=== PATIENT | female | born 1970 | race Caucasian/White ===

== ENCOUNTER 2017-10-19 17:00 | Emergency (ER) | payer MEDICAID ==
[~2017-10-19] VITALS: Ht 172.7 cm; Wt 76.0 kg
[~2017-10-19 17:00] MED LIST: CALC1TAB PO; HYDR-3972 PO; LACT1CAP26 PO; POLY17PO2 PO; PRED5DRO7 LEFTEYE
[2017-10-19] MEDS ORDERED: SULF1TAB49 PO (18:42)
[2017-10-19 18:50] VITALS: BP 133/87
== END 2017-10-19 18:52 | disposition home or self-care (01) ==
LOC: ER 17:01
DX: L03.115 Cellulitis of right lower limb (principal); K21.9 Gastro-esophageal reflux disease without esophagitis; M19.90 Unspecified osteoarthritis, unspecified site; F12.90 Cannabis use, unspecified, uncomplicated; Z90.49 Acquired absence of other specified parts of digestive tract; Z56.0 Unemployment, unspecified
CPT/HCPCS: 99283

== ENCOUNTER 2019-04-04 15:54 | Emergency (ER) | payer MEDICAID ==
[~2019-04-04] VITALS: Ht 172.7 cm; Wt 81.8 kg
[~2019-04-04 15:54] MED LIST changes: +CLIN-90 PO; -POLY17PO2 PO; +POLY17PO36 PO
[2019-04-04 15:57] VITALS: BP 122/68
[2019-04-04] MEDS ORDERED: AZIT500T PO (17:00)
== END 2019-04-04 17:33 | disposition home or self-care (01) ==
LOC: ER 15:55
DX: J18.9 Pneumonia, unspecified organism (principal); K21.9 Gastro-esophageal reflux disease without esophagitis; M19.90 Unspecified osteoarthritis, unspecified site; F12.90 Cannabis use, unspecified, uncomplicated; F17.200 Nicotine dependence, unspecified, uncomplicated; Z90.49 Acquired absence of other specified parts of digestive tract; Z56.0 Unemployment, unspecified; Z88.0 Allergy status to penicillin; Z79.899 Other long term (current) drug therapy
CPT/HCPCS: 71045; 99283

== ENCOUNTER 2020-03-22 22:09 | Emergency (ER) | payer MEDICAID ==
[~2020-03-22] VITALS: Ht 172.7 cm; Wt 78.2 kg
[~2020-03-22 22:09] MED LIST changes: -CLIN-90 PO; +CLIN-97 PO
[2020-03-22 22:18] VITALS: BP 153/57
== END 2020-03-22 22:34 | disposition home or self-care (01) ==
LOC: ER 22:10
DX: M25.531 Pain in right wrist (principal); K21.9 Gastro-esophageal reflux disease without esophagitis; M19.90 Unspecified osteoarthritis, unspecified site; F12.90 Cannabis use, unspecified, uncomplicated; Z72.89 Other problems related to lifestyle; Z56.0 Unemployment, unspecified; Z90.49 Acquired absence of other specified parts of digestive tract; Z88.0 Allergy status to penicillin; Z79.899 Other long term (current) drug therapy
CPT/HCPCS: 99282

== ENCOUNTER 2020-04-05 18:42 | Emergency (ER) | payer MEDICAID ==
[~2020-04-05] VITALS: Ht 172.7 cm; Wt 78.2 kg
[2020-04-05] MEDS ORDERED: IBUP-1985 PO (19:08)
[2020-04-05] MEDS ORDERED: CLIN150C99 PO (19:08)
[2020-04-05] MEDS ORDERED: HYDR-3965 PO (19:08)
[2020-04-05] MEDS ORDERED: LORazepam 2 mg/ml vial ONE (19:52)
[2020-04-05] MEDS ORDERED: LORazepam 2 mg/ml vial IM ONE (19:55)
--- NOTE | 2020-04-05 19:55 | NUR ---
walking past pts room and the daughter screams "she's having a seziure" - I immediately called for a physician and MD Eddy arrive approx 10 seconds later. The daughter starts screaming at how we are not doing our job and no one has been in the room to see her and we have done nothing for her seizure. pt was not witnessed to have seizure activity by EMS or staff while here in ER - She was indeed having a seizure when I entered the room with incontinence of urine and tonic clonic activity. The daughter continued to yell at me as I was trying to explain the process to her. She told me to "shup up" and that I was insulting her by trying to explain things to her. I called for security and then administered 2mg IM ativan per MD eddy order. The patient was asked to wait outside the room so we could treat her mother. She complied with my request but when the patient awoke and was postictal she wasn't understanding why we were having the pt remain in the supine position. She took out her cell phone and started to video record. I advised her that cell phone recording was not allowed and she refused to put the phone away. Security was still in the room and they asked her as well. She was then escorted off the property.
[2020-04-05] MEDS ORDERED: LORazepam 2 mg/ml vial IV ONE (20:05)
--- NOTE | 2020-04-05 20:10 | NUR ---
Pt is no longer seizing. A/O X 3. Pt able to answer questions verbally, but is actively trying to pull out IV's. Pt is being restrained by staff until Ativan takes effect. Verbal order for soft safety restraints from PATEL Wilkins. Pt restrained B/L UE CSM intact
--- NOTE | 2020-04-05 21:13 | NUR ---
Pts Jim's phone number [phone]
[2020-04-05 21:33] LABS: BASOPHILS # (AUTO) 0.1 X10'3 (0-0.2); BASOPHILS % (AUTO) 0.3 % (0-1); EOSINOPHILS % (AUTO) 0 % (0-6); HEMATOCRIT 47.6 % (35.0-45.0); HEMOGLOBIN 15.8 g/dl (12.0-16.0); LYMPHOCYTES # (AUTO) 0.8 X10'3 (1.1-4.8); LYMPHOCYTES % (AUTO) 3.8 % (21-51); MEAN CORPUSCULAR HEMOGLOBIN 29.8 PG (27.0-31.0); MEAN CORPUSCULAR HGB CONC 33.3 g/dL (33.0-36.5); MEAN CORPUSCULAR VOLUME 89.4 FL (78-98); MONOCYTES # (AUTO) 0.6 X10'3 (0-0.9); MONOCYTES % (AUTO) 2.9 % (2-12); NEUTROPHILS # (AUTO) 18.6 X10'3 (1.8-7.7); PLATELET COUNT 402 X10'3 (140-440); RED BLOOD COUNT 5.32 X10'6 (4.20-5.60); RED CELL DISTRIBUTION WIDTH 13.2 % (11.5-14.5)
[2020-04-05 21:39] LABS: ALANINE AMINOTRANSFERASE 26 U/L (12-78); ALBUMIN 3.6 G/DL (3.4-5.0); ALBUMIN/GLOBULIN RATIO 0.8 (1.1-1.5); ALKALINE PHOSPHATASE 95 IU/L (46-116); ANION GAP 14 (8-16); ASPARTATE AMINO TRANSFERASE 21 U/L (10-37); BILIRUBIN,TOTAL 0.4 MG/DL (0.1-1.0); BLOOD UREA NITROGEN 16 MG/DL (7-18); BUN/CREATININE RATIO 19.8 (6.6-38.0); CALCIUM 9.3 MG/DL (8.5-10.1); CHLORIDE 95 MMOL/L (99-107); CREATININE 0.81 MG/DL (0.40-0.90); ETHANOL < 0.010 GM/DL (0.0-0.010); GLUCOSE 174 MG/DL (70-104); MAGNESIUM 1.6 MG/DL (1.5-2.4); SODIUM 132 MMOL/L (135-145); TOTAL CARBON DIOXIDE 23.2 MMOL/L (24-32); TOTAL PROTEIN 7.9 G/DL (6.4-8.2); eGFR 75 ML/MIN
[2020-04-05 21:43] LABS: CLARITY,URINE CLOUDY (Clear); COLOR,URINE YELLOW (Yellow); GLUCOSE, URINE NEGATIVE (Neg); KETONES,URINE NEGATIVE (Neg); LEUKOCYTE ESTERASE ,URINE NEGATIVE (Neg); NITRITES, URINE NEGATIVE (Neg); OCCULT BLOOD,URINE SMALL (Neg); PROTEIN,URINE 100 mg/dl (Neg); UROBILINOGEN,URINE 0.2 E.U/dL (0.2-1.0)
[2020-04-05 21:45] LABS: UA COLLECTION TYPE STRAIGHT CATH
[2020-04-05 21:50] LABS: HYALINE CASTS 0-3 /LPF (NEGATIVE)
[2020-04-05 21:52] LABS: AMORPHOUS URATES 3+; BACTERIA,URINE NONE SEEN /HPF (Neg); MUCUS STRANDS FEW /LPF (Neg); RBC,URINE 0-2 /HPF (0-2); SQUAMOUS EPITHELIAL CELL,UR FEW /LPF (FEW); TRANSITIONAL EPI CELLS,URINE FEW /HPF; WBC,URINE 0-4 /HPF (0-4)
[2020-04-05] MEDS ORDERED: normal saline 1000ML IV soln IVB ONE ×2 (21:55)
--- NOTE | 2020-04-05 21:55 | NUR ---
Pt moved from ED 11 to ED 8 for closer observation. Pt is resting comfortably. Pt has low tolerance for environmental stimulation and will become agitated during care. Restraints removed while resting.
[2020-04-05 21:58] LABS: URINE AMPHETAMINE SCREEN POSITIVE (Neg); URINE BARBITUATE SCREEN NEGATIVE (Neg); URINE BENZODIAZEPINES SCREEN POSITIVE (Neg); URINE CANNABINOID SCREEN POSITIVE (Neg); URINE COCAINE SCREEN NEGATIVE (Neg); URINE METHADONE SCREEN NEGATIVE (Neg); URINE OPIATE SCREEN POSITIVE (Neg); URINE PHENCYCLIDINE SCREEN NEGATIVE (Neg)
[2020-04-05 22:35] LABS: PARTIAL THROMBOPLASTIN TIME 25 SECONDS (22-32)
--- NOTE | 2020-04-06 00:23 | NUR ---
Pt up to bedside commode. Pt followed instructions, but was impulsive and unsteady on her feet. Pt A/O X 4. She states she feels dizzy.
[2020-04-06 01:00] VITALS: BP 175/76
== END 2020-04-06 02:50 | disposition home or self-care (01) ==
LOC: ER 18:42
DX: G40.909 Epilepsy, unspecified, not intractable, without status epilepticus (principal); F19.10 Other psychoactive substance abuse, uncomplicated; F12.90 Cannabis use, unspecified, uncomplicated; K21.9 Gastro-esophageal reflux disease without esophagitis; M19.90 Unspecified osteoarthritis, unspecified site; Z56.0 Unemployment, unspecified; Z72.89 Other problems related to lifestyle; Z90.49 Acquired absence of other specified parts of digestive tract; Z88.0 Allergy status to penicillin; Z79.2 Long term (current) use of antibiotics; Z79.899 Other long term (current) drug therapy
CPT/HCPCS: 36415; 70450; 80053; 80305; 80320; 81001; 82948; 83605; 83735; 84145; 85025; 85610; 85730; 93005; 96361; 96372; 96374; 99285; J2060; J7030

== ENCOUNTER 2020-07-25 09:41 | Emergency (ER) | payer MEDICAID ==
[~2020-07-25] VITALS: Ht 172.7 cm; Wt 78.6 kg
[~2020-07-25 09:41] MED LIST changes: -CLIN-97 PO; +CLIN150C99 PO; +HYDR-3965 PO; -HYDR-3972 PO; +IBUP-1985 PO; -POLY17PO36 PO; +POLY17PO59 PO
[2020-07-25] MEDS ORDERED: HYDROcodone/acetaminophen 10/325mg tab PO ONE (11:05)
[2020-07-25] MEDS ORDERED: HYDR-3972 PO (12:16)
[2020-07-25 12:45] VITALS: BP 108/83
== END 2020-07-25 12:47 | disposition home or self-care (01) ==
LOC: ER 09:41
DX: S22.32XA Fracture of one rib, left side, initial encounter for closed fracture (principal); K21.9 Gastro-esophageal reflux disease without esophagitis; F12.10 Cannabis abuse, uncomplicated; Z56.0 Unemployment, unspecified; Z88.0 Allergy status to penicillin; Z79.899 Other long term (current) drug therapy; X50.9XXA Other and unspecified overexertion or strenuous movements or postures, initial encounter; Y93.89 Activity, other specified; Y92.89 Other specified places as the place of occurrence of the external cause; Y99.8 Other external cause status
CPT/HCPCS: 71101; 99283

== ENCOUNTER 2024-10-11 10:14 | Emergency (ER) | payer MEDICAID ==
[~2024-10-11] VITALS: Ht 172.7 cm; Wt 78.6 kg
[~2024-10-11 10:14] MED LIST changes: -IBUP-1985 PO; +IBUP600T52 PO
[2024-10-11 10:23] VITALS: TEMP 97.9
--- NOTE | 2024-10-11 10:43 | Physician Documentation ---
History of Present Illness Chief Complaint: Abdominal Pain w/vomiting Stated Complaint: BLOOD IN STOOL Primary Medical Doctor: MARS CUNHA [facility] This is a 54-year-old female who presents with four days of abdominal pain and vomiting, patient reports that she took Dulcolax yesterday and develop diarrhea and reports blood in her stool today. She tells me that initially her symptoms started with acid reflux, nausea and vomiting. She then took a docusate, and started having diarrhea yesterday. She states that the last several bowel movements were just blood. She reports now having pain in her left lower quadrant. Denies any dizziness or syncope. She does feel like she is having subjective fevers. No right-sided abdominal pain. She does have a history of hemorrhoids once in the past but no recent GI bleed. No bleeding from elsewhere. Medication Reconciliation Allergies: Coded Allergies: Penicillins (Unverified Allergy, Severe, SHORTNESS OF BREATH, ANAPHYLAXIS, 10/11/24) Scheduled Calcium Carbonate/Vitamin D3 (Caltrate-600 With Vit D Tab), 2 TAB PO DAILY, (Reported) Ciprofloxacin HCl (Ciprofloxacin HCl), 1 TAB PO Q12H Clindamycin HCl (Clindamycin HCl), 1 CAP PO Q6H, (Reported) Lactobacillus Rhamnosus (Culturelle), 10,000 MMU PO BIDWM Metronidazole* (Flagyl*), 1 TAB PO Q8H Prednisolone Acetate (Prednisolone Acetate), 1 DROP LEFTEYE QID, (Reported) Scheduled PRN Hydrocodone Bit/Acetaminophen 5/325 MG ([place] 5/325 MG), 1 TAB PO Q6H PRN for pain, (Reported) Ibuprofen (Ibuprofen), 1 TAB PO Q6H PRN for pain, (Reported) ONDANSETRON ODT 4mg tablet (Ondansetron Odt), 1 TAB PO Q6H PRN PRN for nausea/vomiting Polyethylene Glycol 3350 (Polyethylene Glycol 3350), 17 GM PO BID PRN for constipation Past Medical History Past Medical History: GERD, Arthritis Past Surgical History: appendectomy Other Past Family History: none Alcohol Use: Occasionally Drug Use: marijuana Lives with: Other Lives In: Home Occupation: unemployed Review of Systems ROS As stated above in the HPI, otherwise all systems are reviewed and negative. Gastrointestinal: Reports: abdominal pain, nausea, vomiting, diarrhea, rectal bleeding Physical Exam Vital Signs: Temperature: 97.9, Source: Oral, Heart Rate: 109, Respiratory Ra te: 18, BP: 150/77, Pulse Oximetry: 96, Weight: 78.600 Oxygen Flow Rate: 0 Physical Exam General: This is a uncomfortable appearing middle-aged woman, not in distress HEENT: Atraumatic, oropharynx appears dry with cracked lips Heart: Mild tachycardic, appears regular Lungs: normal work of breathing, normal oxygen saturation on room air Abdomen: Soft, nondistended, focal tenderness to palpation in the left lower quadrant, also mild discomfort on palpation in the epigastric region, no rebound or guarding Neuro: Alert and oriented, no focal deficits Psychiatric: Appears tired and uncomfortable, but is cooperative with exam Progress Results/Orders Results/Orders Orders - CHARLA BROWN Urinalysis, Cult If Indicated (10/11/24 10:29) Hcg, Ur Ql (10/11/24 10:29) Cbc/Diff (10/11/24 10:29) BMP (10/11/24 10:29) Lipase (10/11/24 10:29) CMP (10/11/24 10:29) Vital Signs 10/11/24 10:23 Temp 97.9 Pulse 109 Resp 18 B/P (MAP) 150/77 Pulse Ox 96 O2 Flow Rate 0 EKG/XRAY/CT/US/VASC/MRI CT : Impression I personally interpreted the CT scan, and this shows inflammation of the colon, possibly diverticulitis Medical Decision Making Findings MSE performed in triage and patient returned to ED lobby by nursing staff to await available ED room Additional Comments Differential includes viral syndrome, food poisoning, GI bleed, colitis, diverticulitis, UTI, dehydration, blood loss anemia Assessment The patient presents with left-sided abdominal pain with the associated diarrhea and possible blood in the stool. She is otherwise nontoxic appearing and did not have a surgical abdomen. She does have a leukocytosis, and her CT scan shows findings consistent with diverticulitis or colitis. He had no further diarrhea or bleeding here in the emergency department. We are unable to obtain a stool sample. She will be discharged with antibiotics for presumed colitis, and was given Zofran for nausea. She will be discharged with home care instructions and return precautions. Departure Time of Disposition: 15:12 Disposition: 01 HOME / SELF CARE / HOMELESS Impression: Primary Impression: Colitis Additional Impressions: Diarrhea Left lower quadrant pain Condition: Improved Discharge Instructions: Colitis Referrals: NO PRIMARY CARE PROVIDER (PCP) Prescriptions ONDANSETRON ODT 4mg tablet (ONDANSETRON ODT) 4 Mg Tab.rapdis 1 TAB PO Q6H PRN PRN for nausea/vomiting for 4 Days, #16 TAB 0 Refills Prov: ERIN BUENO MD 10/11/24 Metronidazole* (Flagyl*) 500 Mg Tablet 1 TAB PO Q8H for 7 Days, #21 TAB Prov: ERIN BUENO MD 10/11/24 Ciprofloxacin HCl (Ciprofloxacin HCl) 500 Mg Tab 1 TAB PO Q12H for 7 Days, #14 TAB Prov: ERIN BUENO MD 10/11/24 Education Educated: Patient Educated regarding: diagnosis, treatment, need for follow up Signature Scribe Signature: juany Attestation: CHARLA Vargas Oct 11, 2024 10:43 ERIN BUENO MD Oct 11, 2024 12:57
[2024-10-11 11:09] LABS: MEAN PLATELET VOLUME 7.1 FL (7.4-10.4); RED CELL DISTRIBUTION WIDTH 13.2 % (11.5-14.5)
[2024-10-11 11:44] LABS: CREATININE 1.19 MG/DL (0.40-0.90); TOTAL CARBON DIOXIDE 27.6 MMOL/L (24-32); eCRCL 53 ML/MIN; eGFR 47 ML/MIN
[2024-10-11 12:58] LABS: URINE HCG NEGATIVE (NEG)
[2024-10-11 12:59] LABS: LEUKOCYTE ESTERASE ,URINE TRACE (Neg); NITRITES, URINE NEGATIVE (Neg); OCCULT BLOOD,URINE NEGATIVE (Neg)
[2024-10-11 13:01] LABS: UA COLLECTION TYPE URINAL
[2024-10-11 13:09] LABS: HYALINE CASTS >30 /LPF (NEGATIVE)
[2024-10-11 13:11] LABS: MUCUS STRANDS FEW /LPF (Neg); RENAL CELLS, URINE FEW /HPF; SQUAMOUS EPITHELIAL CELL,UR MODERATE /LPF (FEW)
[2024-10-11] MEDS: ondansetron/PF 4mg/2ml inj IV ONE (13:21)
[2024-10-11] MEDS: normal saline 1000ML IV soln IVB ONE (13:21)
[2024-10-11] MEDS: morphine 4 MG/ML inj SYRINge IV ONE (13:21)
[2024-10-11] MEDS ORDERED: iohexol 300mg/ml 100ml inj. ONE (13:42)
--- NOTE | 2024-10-11 14:29 | RADIOLOGY REPORT ---
EXAM: CT CT ABDOMEN PELVIS W/ IV CONTRAST HISTORY: Left lower quadrant pain, vomiting and diarrhea COMPARISON: None TECHNIQUE: Helical CT images of the abdomen and pelvis were performed with 100 mL omnipaque 300 IV c ontrast. Sagittal and coronal reformatted images were obtained. This CT exam was performed using 1 or more of the following dose reduction techniques: Automated exposure control, adjustment of the mA an d/or kv according to patient size, or the use of iterative reconstruction techniques. Radiation Dose Information: CT Dose: CTDI volume is 20.68 mGy. Dose-length product is 1025.65 mGy*cm FINDINGS: CT abdomen: The lung bases are clear. The heart is not enlarged. The liver, spleen, gallbladder, panc reas, kidneys, and adrenal glands are unremarkable. No abdominal aortic aneurysm or dissection. The l eft renal vein is circumaortic. CT pelvis: No abnormal bowel dilatation, free air, or free fluid. There are diverticula in the descen ding colon and sigmoid colon. There is wall thickening of the descending colon with mild adjacent fat stranding. The appendix is surgically absent. The urinary bladder is unremarkable. There is a danielle nichelle section scar. There is advanced lumbar degenerative disc disease and facet arthropathy. There is mild lumbar dextroscoliosis. IMPRESSION: 1. Descending colitis versus diverticulitis. No evidence of pericolic abscess. 2. Postoperative changes of appendectomy and section surgery. 3. Advanced lumbar degenerative disc disease and facet arthropathy. If the patient complains of lowe r extremity radicular symptoms, consider follow-up noncontrast MRI of the lumbar spine for further ev aluation on a nonemergent basis. 4. No evidence of bowel obstruction or other acute process in the abdomen or pelvis.
[2024-10-11] MEDS: ciprofloxacin 250mg tablet PO ONE (15:07)
[2024-10-11] MEDS ORDERED: CIPR-458 PO (15:14)
[2024-10-11] MEDS ORDERED: METR-159 PO (15:14)
[2024-10-11] MEDS ORDERED: ONDA-243 PO (15:14)
[2024-10-11 15:32] VITALS: BP 144/80; PULSE 90; RESP 15; O2SAT 95
== END 2024-10-11 15:35 | disposition home or self-care (01) ==
LOC: ER 10:15
DX: K52.9 Noninfective gastroenteritis and colitis, unspecified (principal); R11.2 Nausea with vomiting, unspecified; K21.9 Gastro-esophageal reflux disease without esophagitis; F12.90 Cannabis use, unspecified, uncomplicated; M19.90 Unspecified osteoarthritis, unspecified site; Z87.19 Personal history of other diseases of the digestive system; Z88.0 Allergy status to penicillin; Z90.49 Acquired absence of other specified parts of digestive tract
CPT/HCPCS: 36415; 74177; 80053; 81001; 81025; 83690; 85025; 87088; 96361; 96374; 96375; 99285; J2270; J2405; J7030; Q9967